=== PATIENT | female | born 1975 | race American Indian/Alaskan Native ===

== ENCOUNTER 2018-02-01 10:03 | Outpatient (CLI) | payer MEDICAID ==
[2018-02-01] MEDS ORDERED: XYLOCAINE TOPICAL 4% TP ONE ×3 (10:50→11:01)
== END 2018-02-01 10:04 | disposition home or self-care (01) ==
LOC: WOUND 10:03
PROVIDERS: ATTEND Surgery
DX: I87.311 Chronic venous hypertension (idiopathic) with ulcer of right lower extremity (principal); E11.622 Type 2 diabetes mellitus with other skin ulcer; L97.212 Non-pressure chronic ulcer of right calf with fat layer exposed; F17.200 Nicotine dependence, unspecified, uncomplicated

== ENCOUNTER 2018-02-07 09:09 | Outpatient (CLI) | payer MEDICAID ==
--- NOTE | 2018-02-09 11:29 | Vascular Lab Report ---
Right Lower Extremity Venous Duplex Study: Reason for Exam: Venous stasis ulcers of the right lower extremity. Comments on the Right: All veins visualized are freely compressible without evidence of internal echogenicity. Flow is spontaneous and phasic throughout. No evidence of acute or chronic thrombus is seen in any of the vessels visualized. Comments on the Left: A limited duplex study was done of the proximal veins of the left lower extremity. All veins visualized are freely compressible without evidence of internal echogenicity. Flow is spontaneous and phasic throughout. No evidence of acute or chronic thrombus is seen in any of the vessels visualized. Impression: No evidence of acute or chronic deep venous thrombosis in the right lower extremity.
== END 2018-02-07 09:10 | disposition home or self-care (01) ==
LOC: VAS 09:09
PROVIDERS: ATTEND Surgery
DX: I87.311 Chronic venous hypertension (idiopathic) with ulcer of right lower extremity (principal); E11.628 Type 2 diabetes mellitus with other skin complications; L97.212 Non-pressure chronic ulcer of right calf with fat layer exposed
CPT/HCPCS: 36415; 83036

== ENCOUNTER 2018-02-08 10:08 | Outpatient (CLI) | payer MEDICAID ==
[2018-02-08] MEDS ORDERED: XYLOCAINE TOPICAL 4% TP ONE (10:20)
== END 2018-02-08 10:09 | disposition home or self-care (01) ==
LOC: WOUND 10:08
PROVIDERS: ATTEND Surgery
DX: I87.311 Chronic venous hypertension (idiopathic) with ulcer of right lower extremity (principal); E11.622 Type 2 diabetes mellitus with other skin ulcer; L97.212 Non-pressure chronic ulcer of right calf with fat layer exposed; F17.200 Nicotine dependence, unspecified, uncomplicated

== ENCOUNTER 2018-02-22 09:44 | Outpatient (CLI) | payer MEDICAID ==
[2018-02-22] MEDS ORDERED: XYLOCAINE TOPICAL 4% TP ONE ×2 (09:56→11:45)
== END 2018-02-22 09:45 | disposition home or self-care (01) ==
LOC: WOUND 09:44
PROVIDERS: ATTEND Surgery
DX: I87.311 Chronic venous hypertension (idiopathic) with ulcer of right lower extremity (principal); E11.622 Type 2 diabetes mellitus with other skin ulcer; L97.212 Non-pressure chronic ulcer of right calf with fat layer exposed; F17.200 Nicotine dependence, unspecified, uncomplicated

== ENCOUNTER 2018-03-01 09:54 | Outpatient (CLI) | payer MEDICAID ==
[2018-03-01] MEDS ORDERED: XYLOCAINE TOPICAL 4% TP ONE ×2 (10:46→11:11)
== END 2018-03-01 09:55 | disposition home or self-care (01) ==
LOC: WOUND 09:54
PROVIDERS: ATTEND Surgery
DX: I87.311 Chronic venous hypertension (idiopathic) with ulcer of right lower extremity (principal); E11.622 Type 2 diabetes mellitus with other skin ulcer; L97.212 Non-pressure chronic ulcer of right calf with fat layer exposed; F17.200 Nicotine dependence, unspecified, uncomplicated

== ENCOUNTER 2018-03-08 09:00 | Outpatient (CLI) | payer MEDICAID ==
[2018-03-08] MEDS ORDERED: XYLOCAINE TOPICAL 4% TP ONE ×3 (09:14→09:53)
== END 2018-03-08 09:01 | disposition home or self-care (01) ==
LOC: WOUND 09:00
PROVIDERS: ATTEND Surgery
DX: I87.311 Chronic venous hypertension (idiopathic) with ulcer of right lower extremity (principal); E11.622 Type 2 diabetes mellitus with other skin ulcer; L97.212 Non-pressure chronic ulcer of right calf with fat layer exposed; F17.200 Nicotine dependence, unspecified, uncomplicated

== ENCOUNTER 2018-03-15 09:43 | Outpatient (CLI) | payer MEDICAID ==
[2018-03-15] MEDS ORDERED: XYLOCAINE TOPICAL 4% TP ONE ×2 (11:18→11:33)
== END 2018-03-15 09:44 | disposition home or self-care (01) ==
LOC: WOUND 09:43
PROVIDERS: ATTEND Surgery
DX: I87.311 Chronic venous hypertension (idiopathic) with ulcer of right lower extremity (principal); E11.622 Type 2 diabetes mellitus with other skin ulcer; L97.212 Non-pressure chronic ulcer of right calf with fat layer exposed; F17.200 Nicotine dependence, unspecified, uncomplicated

== ENCOUNTER 2018-03-29 08:58 | Outpatient (CLI) | payer MEDICAID ==
[2018-03-29] MEDS ORDERED: XYLOCAINE TOPICAL 4% TP ONE ×2 (09:51→09:54)
== END 2018-03-29 08:59 | disposition home or self-care (01) ==
LOC: WOUND 08:58
PROVIDERS: ATTEND Surgery
DX: I87.311 Chronic venous hypertension (idiopathic) with ulcer of right lower extremity (principal); E11.622 Type 2 diabetes mellitus with other skin ulcer; L97.212 Non-pressure chronic ulcer of right calf with fat layer exposed; F17.200 Nicotine dependence, unspecified, uncomplicated

== ENCOUNTER 2018-06-11 08:09 | Outpatient (CLI) | payer MEDICAID ==
[2018-06-11] MEDS ORDERED: XYLOCAINE TOPICAL 4% TP ONE (08:34)
== END 2018-06-11 08:10 | disposition home or self-care (01) ==
LOC: WOUND 08:09
PROVIDERS: ATTEND Surgery
DX: E11.622 Type 2 diabetes mellitus with other skin ulcer (principal); L97.212 Non-pressure chronic ulcer of right calf with fat layer exposed; I87.311 Chronic venous hypertension (idiopathic) with ulcer of right lower extremity; F17.200 Nicotine dependence, unspecified, uncomplicated

== ENCOUNTER 2018-06-21 09:07 | Outpatient (CLI) | payer MEDICAID ==
[2018-06-21] MEDS ORDERED: XYLOCAINE TOPICAL 4% TP ONE (09:14)
== END 2018-06-21 09:08 | disposition home or self-care (01) ==
LOC: WOUND 09:07
PROVIDERS: ATTEND Surgery
DX: I87.311 Chronic venous hypertension (idiopathic) with ulcer of right lower extremity (principal); E11.622 Type 2 diabetes mellitus with other skin ulcer; L97.212 Non-pressure chronic ulcer of right calf with fat layer exposed; F17.200 Nicotine dependence, unspecified, uncomplicated

== ENCOUNTER 2018-06-28 09:03 | Outpatient (CLI) | payer MEDICAID ==
[2018-06-28] MEDS ORDERED: XYLOCAINE TOPICAL 4% TP ONE (09:14)
[2018-06-28] MEDS ORDERED: SILVER NITRATE TP ONE (09:17)
[2018-06-28] MEDS ORDERED: AD OINTMENT TP PRN (09:40)
== END 2018-06-28 09:04 | disposition home or self-care (01) ==
LOC: WOUND 09:03
PROVIDERS: ATTEND Surgery
DX: E11.622 Type 2 diabetes mellitus with other skin ulcer (principal); L97.212 Non-pressure chronic ulcer of right calf with fat layer exposed; I87.311 Chronic venous hypertension (idiopathic) with ulcer of right lower extremity; F17.200 Nicotine dependence, unspecified, uncomplicated
CPT/HCPCS: A6250

== ENCOUNTER 2018-07-13 08:57 | Outpatient (CLI) | payer MEDICAID | END 2018-07-13 08:58 | disposition home or self-care (01) | LOC: WOUND 08:57 ==

== ENCOUNTER 2018-07-27 08:55 | Outpatient (CLI) | payer MEDICAID | END 2018-07-27 08:56 | disposition home or self-care (01) | LOC: WOUND 08:55 | CPT/HCPCS: 99214; G0463 ==

== ENCOUNTER 2018-08-07 09:04 | Outpatient (CLI) | payer MEDICAID ==
[2018-08-07] MEDS ORDERED: XYLOCAINE TOPICAL 4% TP ONE (09:08)
== END 2018-08-07 09:05 | disposition home or self-care (01) ==
LOC: WOUND 09:04
PROVIDERS: ATTEND Surgery
DX: I87.311 Chronic venous hypertension (idiopathic) with ulcer of right lower extremity (principal); E11.622 Type 2 diabetes mellitus with other skin ulcer; L97.212 Non-pressure chronic ulcer of right calf with fat layer exposed; F17.210 Nicotine dependence, cigarettes, uncomplicated
CPT/HCPCS: 97597

== ENCOUNTER 2018-08-16 09:00 | Outpatient (CLI) | payer MEDICAID ==
[2018-08-16] MEDS ORDERED: XYLOCAINE TOPICAL 4% TP ONE (10:00)
== END 2018-08-16 09:01 | disposition home or self-care (01) ==
LOC: WOUND 09:00
PROVIDERS: ATTEND Surgery
DX: E11.622 Type 2 diabetes mellitus with other skin ulcer (principal); I87.311 Chronic venous hypertension (idiopathic) with ulcer of right lower extremity; L97.218 Non-pressure chronic ulcer of right calf with other specified severity; F17.200 Nicotine dependence, unspecified, uncomplicated
CPT/HCPCS: 99213; G0463